=== PATIENT | female | born 1975 | race Caucasian/White ===

== ENCOUNTER → 2019-03-29 11:39 | Outpatient (CLI) | payer OTHER, SELFPAY ==
[2019-03-29 13:15] LABS: Cholesterol 226 mg/dL (140-199); Glucose 88 mg/dL (70-100); HDL Cholesterol 98 mg/dL (40-60); LDL Cholesterol Calculated 116 mg/dL (<100); Triglycerides 59 mg/dL (35-150)
== END ==
PROVIDERS: PCP Physician Assistant; Visit Provider Physician Assistant
DX: Z13.1 Encounter for screening for diabetes mellitus (principal); Z13.220 Encounter for screening for lipoid disorders; Z13.6 Encounter for screening for cardiovascular disorders
CPT/HCPCS: 36415; 80061; 82947